=== PATIENT | male | born 1950 | race Hispanic/Latino ===

== ENCOUNTER 2018-04-15 08:16 | Observation (INO) | payer MEDICARE ==
[~2018-04-15] VITALS: Ht 175.3 cm; Wt 98.0 kg
[2018-04-15] MEDS ORDERED: NITROGLYCERIN 2% OINT 1 GM PKT TOP ONE (08:30)
[2018-04-15] MEDS ORDERED: ASPIRIN 81 MG CHEW TAB PO ONE (08:30)
--- NOTE | 2018-04-15 08:49 | NUR ---
Gonzalez, sanchez, Carol Farley #[id number] used in patient triage
--- NOTE | 2018-04-15 09:15 | NUR ---
PATIENT AWAKE AND ALERT SITTING IN BED. RESP EVEN AND UNLABORED. SKIN WARM AND DRY. NO SIGNS OF ACUTE DISTRESS NOTED AT THIS TIME. REPORTS CHEST PAIN HAS IMPROVED AFTER NITRO NOW 08/15, WAS 8/10. DENIES ANY OTHER C/O AT THIS TIME.
[2018-04-15 09:33] LABS: BASOPHILS % 0.5 % (0.0-1.0); EOSINOPHILS # (AUTO) 0.2 (0.0-0.4); EOSINOPHILS % 2.8 % (0.0-6.0); HEMATOCRIT 47.2 % (38.2-49.6); HEMOGLOBIN 15.8 g/dL (14.0-18.0); LYMPHOCYTES # (AUTO) 1.9 (1.0-3.2); LYMPHOCYTES % 30.8 % (18.0-39.1); MEAN CORPUSCULAR HEMOGLOBIN 29.5 pg (28-32); MEAN CORPUSCULAR HGB CONC 33.5 g/dL (31-35); MEAN CORPUSCULAR VOLUME 88.2 fL (81-99); MONOCYTES # (AUTO) 0.3 (0.2-0.8); MONOCYTES % 4.5 % (4.4-11.3); NEUTROPHILS # (AUTO) 3.7 (2.1-6.9); NEUTROPHILS % 61.1 % (38.7-80.0); PLATELET COUNT 224 x10e3/uL (140-360); RED BLOOD COUNT 5.35 x10e6/uL (4.3-5.7); RED CELL DISTRIBUTION WIDTH 12.6 % (11.7-14.4)
[2018-04-15 09:39] LABS: INR 0.89; PROTHROMBIN TIME 12.9 seconds (11.9-14.5)
[2018-04-15 09:41] LABS: PARTIAL THROMBOPLASTIN TIME 47.9 seconds (23.8-35.5)
[2018-04-15 09:45] LABS: BILIRUBIN,URINE NEGATIVE (NEGATIVE); CLARITY,URINE SL CLOUDY (CLEAR); COLOR,URINE YELLOW (YELLOW); KETONES,URINE NEGATIVE (NEGATIVE); LEUKOCYTE ESTERASE ,URINE NEGATIVE (NEGATIVE); NITRITE,URINE NEGATIVE (NEGATIVE); PROTEIN,URINE DIPSTICK 1+ (NEGATIVE); URINE UROBILINOGEN 0.2 mg/dL (0.2 - 1)
[2018-04-15 09:46] LABS: ALANINE AMINOTRANSFERASE 14 IU/L (0-55); ALBUMIN 3.6 g/dL (3.5-5.0); ALBUMIN/GLOBULIN RATIO 0.9 (0.8-2.0); ALKALINE PHOSPHATASE 114 IU/L (40-150); ANION GAP 13.3 mmol/L (8-16); BLOOD UREA NITROGEN 12 mg/dL (7-26); BUN/CREATININE RATIO 10 (6-25); CALCIUM 9.4 mg/dL (8.4-10.2); CARBON DIOXIDE 27 mmol/L (22-29); CHLORIDE 100 mmol/L (98-107); CREATINE KINASE 76 IU/L (30-200); CREATININE, SERUM 1.16 mg/dL (0.72-1.25); EST GLOMERULAR FILTRATION RATE > 60 ML/MIN (60-); GLUCOSE 197 mg/dL (74-118); LIPASE 16 U/L (8-78); POTASSIUM 4.3 mmol/L (3.5-5.1); SODIUM 136 mmol/L (136-145)
[2018-04-15 09:55] LABS: EPITHELIAL CELLS,URINE RARE /LPF
--- NOTE | 2018-04-15 10:12 | Diagnostic Imaging Report ---
EXAMINATION: CHEST SINGLE (PORTABLE) INDICATION: Left sided chest pain. COMPARISON: None FINDINGS: TUBES and LINES: None. LUNGS: Lungs are well inflated. Lungs are clear. There is no evidence of pneumonia or pulmonary edema. PLEURA: No pleural effusion or pneumothorax. HEART AND MEDIASTINUM: The cardiomediastinal silhouette is unremarkable. Tortuous and ectatic thoracic aorta. BONES AND SOFT TISSUES: No acute osseous lesion. Soft tissues are unremarkable. UPPER ABDOMEN: No free air under the diaphragm. IMPRESSION: No acute radiographic abnormality. Signed by: Dr. Arnie Ramirez MD on 04/15/2018 10:08 AM
[2018-04-15] MEDS ORDERED: LISINOPRIL 2.5 MG TAB PO ONE (10:15)
[2018-04-15] MEDS ORDERED: ONDANSETRON HCL INJ 2MG/ML 2ML 2 MG/ML VIAL IV PRN (10:45)
[2018-04-15] MEDS: FAMOTIDINE 20 MG/2 ML VIAL IV SCH ×2 (11:00→21:00)
--- NOTE | 2018-04-15 11:05 | NUR ---
VERBAL REPORT GIVEN TO NICOLE TROTTER.
--- NOTE | 2018-04-15 11:35 | NUR ---
rec'd pt in walking rounds with judith wilson for continuity of care. geoff.s.s
[2018-04-15] MEDS: NITROGLYCERIN 2% OINT 1 GM PKT TOP SCH ×3 (12:00→23:55)
--- OUTSIDE RECORDS SUMMARY | 2018-04-15 13:03 | XMS REPORT ---
[facility] Address Unknown Phone Unavailable Care Team Providers Care Rn Iv Therapy Name Role Phone Errol FALLON Unavailable Unavailable Problems This patient has no known problems. Allergies, Adverse Reactions, Alerts This patient has no known allergies or adverse reactions. Medications This patient has no known medications. Results Test Description Test Time Test Comments Text Results Atomic Results Result Comments CHEST SINGLE (PORTABLE) 2018-04-15 10:05:00 [place] [address] Patient Name: LAURA NOVA MR #: [id number] : 1950 Age/Sex: 68/M Req #: [id number] Adm Physician: Ordered by: FADUMO FALLON MD Report #: [id number] Location: ER Room/Bed: Procedure: [id number] DX/CHEST SINGLE (PORTABLE) Exam Date: 04/15/18 Exam Time: 0905 REPORT STATUS: Signed EXAMINATION: CHEST SINGLE (PORTABLE) INDICATION: Left sided chest pain. COMPARISON: None FINDINGS: TUBES and LINES: None. LUNGS: Lungs are well inflated. Lungs are clear. There is no evidence of pneumonia or pulmonary edema. PLEURA: No pleural effusion or pneumothorax. HEART AND MEDIASTINUM: The cardiomediastinal silhouette is unremarkable. Tortuous and ectatic thoracic aorta. BONES AND SOFT TISSUES: No acute osseous lesion. Soft tissues are unremarkable. UPPER ABDOMEN: No free air under the diaphragm. IMPRESSION: No acute radiographic abnormality. Signed by: Dr. Mario De Los Santos MD on 04/15/2018 10:08 AM Dictated By: MARIO DE LOS SANTOS MD [id number] Transcribed By: CHEMA on 04/15/18 1008 COPY TO: FADUMO FALLON MD
--- NOTE | 2018-04-15 13:52 | NUR ---
Patient admitted to unit from ER. Patient arrived via wheelchair. Patient is AAOx3. Ambulates on his own. Patient c/o chest pain for 8 days that radiated down his left arm. No c/o chest pain at this time. Patient states "It gets tighter when I ambulate at times." Lung ferris clear to auscultation. Bowel sounds present x4. No edema noted. No shortness of breath noted.
[2018-04-15 14:15] VITALS: BP 165/79
[2018-04-15 14:23] VITALS: BP 165/79
[2018-04-15 16:10] VITALS: BP 150/80
[2018-04-15 16:34] LABS: CREATINE KINASE MB 1.9 ng/mL (0-5.0)
--- NOTE | 2018-04-15 19:10 | NUR ---
REPORT RECEIVED FROM OFF GOING NURSE, PT RESTING IN BED ALERT AND ORIENTED, NO DISTRESS NOTED, TELEMETRY NOTED, DENIES CHEST PAIN, DENIES NEEDS, CALL LIGHT IN REACH, INSTRUCTED TO CALL WITH NEEDS
[2018-04-15 20:00] VITALS: BP 149/76
[2018-04-16] VITALS (8 sets, daily range): BP systolic 127–206; BP diastolic 58–95
[2018-04-16 04:10] LABS: CREATINE KINASE MB 1.8 ng/mL (0-5.0)
--- NOTE | 2018-04-16 05:21 | NUR ---
PT RESTING IN BED WITH EYES CLOSED, OPENS EYES UPON APPROACH, DENIES NEEDS, DENIES CHEST PAIN, CLINICAL RESOURCE MANAGER NOTED, BED LOCKED AND LOW, CALL LIGHT IN REACH, INSTRUCTED TO CALL WITH NEEDS
[2018-04-16 05:52] LABS: BASOPHILS % 0.4 % (0.0-1.0); EOSINOPHILS # (AUTO) 0.2 (0.0-0.4); EOSINOPHILS % 2.8 % (0.0-6.0); HEMOGLOBIN 13.7 g/dL (14.0-18.0); LYMPHOCYTES # (AUTO) 2.2 (1.0-3.2); LYMPHOCYTES % 29.6 % (18.0-39.1); MEAN CORPUSCULAR HEMOGLOBIN 29.8 pg (28-32); MEAN CORPUSCULAR HGB CONC 34.3 g/dL (31-35); MEAN CORPUSCULAR VOLUME 87.1 fL (81-99); MONOCYTES # (AUTO) 0.4 (0.2-0.8); MONOCYTES % 5.8 % (4.4-11.3); NEUTROPHILS # (AUTO) 4.4 (2.1-6.9); PLATELET COUNT 179 x10e3/uL (140-360); RED BLOOD COUNT 4.59 x10e6/uL (4.3-5.7); RED CELL DISTRIBUTION WIDTH 12.6 % (11.7-14.4)
[2018-04-16] MEDS: NITROGLYCERIN 2% OINT 1 GM PKT TOP SCH ×2 (06:00→13:00)
[2018-04-16 06:13] LABS: ALANINE AMINOTRANSFERASE 11 IU/L (0-55); ALBUMIN/GLOBULIN RATIO 0.9 (0.8-2.0); ALKALINE PHOSPHATASE 92 IU/L (40-150); ANION GAP 12.9 mmol/L (8-16); BLOOD UREA NITROGEN 14 mg/dL (7-26); BUN/CREATININE RATIO 13 (6-25); CALCIUM 8.7 mg/dL (8.4-10.2); CARBON DIOXIDE 24 mmol/L (22-29); CHLORIDE 104 mmol/L (98-107); CHOL/HDL RATIO 5.4 (3.9-4.7); CHOLESTEROL 194 MD/DL (0-199); CREATININE, SERUM 1.09 mg/dL (0.72-1.25); EST GLOMERULAR FILTRATION RATE > 60 ML/MIN (60-); GLUCOSE 157 mg/dL (74-118); HDL CHOLESTEROL 36 MG/DL (40-60); LDL CHOLESTEROL 115 MG/DL (60-130); POTASSIUM 3.9 mmol/L (3.5-5.1); SODIUM 137 mmol/L (136-145); TRIGLYCERIDES 215 MG/DL (0-149)
[2018-04-16] MEDS: LISINOPRIL 2.5 MG TAB PO SCH (09:45)
[2018-04-16] MEDS: FAMOTIDINE 20 MG/2 ML VIAL IV SCH ×2 (09:45→21:00)
[2018-04-16] MEDS: ASPIRIN 81 MG ENTERIC COATED PO SCH (09:45)
--- NOTE | 2018-04-16 11:03 | NUR ---
CASE MANAGEMENT INITIAL ASSESSMENT Treasury Representative to bedside to discuss plan of care with patient/family. CM/SW role and care transitions discussed. Anticipated discharge plan discussed along with duration of care. CM/SW discussed patients right to make decisions in care. CM/SW work hours given. Patient lives: alone Admit/Transfer: thru ED Hospital/ER visits since last admit: never been hospitalized POA/Emergency contact: daughter Augusta Hernández [phone], son Prince Hernández [phone] Current/Previous Home Health: none PCP/Follow-up Care: Dr. Palomo - pt informed to follow with MD within 7 days of discharge Current/Previous DME: none Medications (referring to index hospitalization or the first time you were in the hospital) a. Were changes made in your medications when you were in the hospital on [date of index hospitalization]? n/a b. Did you understand the changes? n/a c. Were you able to obtain your new medications right away? n/a d. Were you able to take your medications like the doctor wanted you to? n/a e. Did the hospital give you an accurate, easy to understand list of medications when you left? n/a Scale of 1-10 how comfortable does patient feel with disease management in outpatient setting: Other Services: none Employment Status: works for [employer] Areas of Concerns: none Referral Needs: none Education Needs: none IMM/MICHELE given and signed (if applicable): MICHELE; signed copy in chart. copy to pt Goal for discharge: home CM/SW left business card at the bedside with contact information. Name and number was also written on the patients whiteboard. Patient verbalized understanding of discussion. CM will follow-up with ongoing discharge and transition of care needs.
--- NOTE | 2018-04-16 12:45 | NUR ---
Nutrition Screen Note RD Recommendation for Physician: Continue diet as ordered Plan of Care: RD following, monitoring for adequacy and tolerance Nutrition reason for involvement: Nutrition Risk Trigger - MST Primary Diagnose(s): Chest pain hypertensive urgency Ht:69 in Wt:219lbs BMI:32.3 kg/m2 IBW:69lbs RD Assessment:(04/16/2018) Initial encounter with patient. Pt is eating well, Denies any difficulty chewing or swallowing nor has any N,V,D. Lab results reviewed, MAR reviewed. Pt speaks mostly Malagasy. Current Diet: Cardiac diet Malnutrition Evaluation (04/16/2018) The patient does not meet criteria for a specified degree of malnutrition at this time. Will re-evaluate at follow-up as appropriate. Diet Education Needs Assessment: Diet education not indicated. Diet Adequacy: Meeting calorie needs, Meeting protein needs, Meeting fluid needs Tolerance: Tolerating PO Nutrition Care Level:Mark Anthony Fu RD, LD, CNSC
--- NOTE | 2018-04-16 14:11 | NUR ---
CALL PLACED TO DR. TELLEZ REGARDING BLOOD PRESSURE. ORDERS REC'D.
[2018-04-16] MEDS ORDERED: LABETALOL HCL 100 MG TAB PO NR (14:15)
[2018-04-16] MEDS ORDERED: LABETALOL HCL 20 MG/4 ML SYRINGE IV NR (14:15)
[2018-04-16] MEDS ORDERED: HYDRALAZINE HCL 25 MG TAB PO NR (14:15)
[2018-04-16] MEDS ORDERED: SPIRONOLACTONE 25 MG TAB PO SCH (15:15)
--- NOTE | 2018-04-16 15:32 | NUR ---
REASSESSED BLOOD PRESSURE; CALLED AND MADE DR TELLEZ AWARE.
[2018-04-16] MEDS ORDERED: ALPRAZOLAM 0.25 MG TAB PO PRN (15:45)
--- NOTE | 2018-04-16 19:10 | NUR ---
REPORT RECEIVED FROM OFF GOING NURSE, PT RESTING IN CHAIR AT BEDSIDE, DENIES NEEDS, ALERT AND ORIENTED, NO DISTRESS NOTED, CALL LIGHT IN REACH, INSTRUCTED TO CALL WITH NEEDS
[2018-04-16] MEDS: LABETALOL HCL 100 MG TAB PO SCH (21:00)
[2018-04-16] MEDS: HYDRALAZINE HCL 25 MG TAB PO SCH (21:12)
[2018-04-16] MEDS ORDERED: HYDRALAZINE HCL 25 MG TAB PO SCH ×2 (22:00)
--- NOTE | 2018-04-16 23:25 | NUR ---
History and PHysical PCP cc: left chest pain HPI: 68yoM, with hx HTN developed left sided chest pain, found to have markedly elevated BP. Admitted for mgmt; No sob/TELLEZ/dizziness PMH: HTn PSHx: none Allergies; see emr Fh/SH; ; no etoh/cigs/illicits Meds; see MAR ROS: no f/c/s/N/V/D/TELLEZ/dizziness/sob/skin rash v/s; rev'd PE: tired appearing anicteric ns1s2 mod bs soft nt nd no e/t a&o3; [place] skin dry n. affect labs/meds; rev;d A/P:68yoM HTN-Emergency DM2 Obesity BMI 32.3 Bradyarrhythmia HLD PLAN 1.remove patch; use BB/hydralazine/aceI 2.lipid panel 3.screen for Dm 4.pepcid/scd f/u lab; titrate antiHTN meds Rudolph Reddy MD, PhD.
[2018-04-17 00:06] VITALS: BP 142/81
[2018-04-17 04:00] VITALS: BP 130/68
--- NOTE | 2018-04-17 05:34 | NUR ---
PT AMBULATING FROM RESTROOM TO BED, NO DISTRESS NOTED, DENIES PAIN, DENIES NEEDS, BANKRUPTCY LAW SPECIALIST NOTED, CALL LIGHT IN REACH, INSTRUCTED TO CALL WITH NEEDS
[2018-04-17] MEDS: HYDRALAZINE HCL 25 MG TAB PO SCH (06:00)
[2018-04-17 08:23] VITALS: BP 168/79
[2018-04-17 08:37] LABS: ALBUMIN 3.3 g/dL (3.5-5.0); ALBUMIN/GLOBULIN RATIO 0.9 (0.8-2.0); ANION GAP 12.7 mmol/L (8-16); CREATININE, SERUM 1.21 mg/dL (0.72-1.25); POTASSIUM 3.7 mmol/L (3.5-5.1)
[2018-04-17 08:43] VITALS: BP 168/79
[2018-04-17] MEDS: LABETALOL HCL 100 MG TAB PO SCH (09:11)
[2018-04-17] MEDS: LISINOPRIL 2.5 MG TAB PO SCH (09:11)
[2018-04-17] MEDS: ASPIRIN 81 MG ENTERIC COATED PO SCH (09:11)
[2018-04-17] MEDS: FAMOTIDINE 20 MG/2 ML VIAL IV SCH (09:11)
--- NOTE | 2018-04-17 09:29 | NUR ---
CM SPOKE TO DR. TELLEZ REGARDING PATIENT PLAN OF CARE. BP MEDICATIONS ADJUSTED. PER MD PATIENT WILL BE DISCHARGED WHEN HE ROUNDS IF BP IS STABLE. CM TO FOLLOW UP.
[2018-04-17] MEDS ORDERED: HYDRALAZINE HCL 25 MG TAB PO NR (11:00)
[2018-04-17] MEDS ORDERED: LISINOPRIL2.5 MG PO (11:02)
[2018-04-17] MEDS ORDERED: METFORMIN HCL500 MG PO (11:02)
[2018-04-17] MEDS ORDERED: ASPIRIN EC81 MG PO (11:02)
[2018-04-17] MEDS ORDERED: HYDRALAZINE HCL25 MG PO (11:02)
[2018-04-17] MEDS ORDERED: ALPRAZOLAM0.25 MG PO (11:02)
[2018-04-17] MEDS ORDERED: LABETALOL HCL100 MG PO (11:02)
[2018-04-17] MEDS ORDERED: ATORVASTATIN CA20 MG PO (11:05)
--- NOTE | 2018-04-17 11:07 | NUR ---
Discharge Summary Principal Dx: A/P:68yoM HTN-Emergency Uncontrolled DM2 Hba1 11 Obesity BMI 32.3 Bradyarrhythmia HLD PLAN 1.remove patch; use BB/hydralazine/aceI 2.lipid panel 3.screen for Dm 4.pepcid/scd f/u lab; titrate antiHTN meds start atorvasatin; use labetalol, hydralazine, lisinopril. Needs ADA diet and close f/u outpt. d/c >35mins d/c home f/u pcp 1 week condition stable Rudolph Reddy MD, PhD.
[2018-04-17] MEDS: METFORMIN HCL 500 MG TAB PO SCH ×2 (12:00→16:45)
--- NOTE | 2018-04-17 12:02 | NUR ---
NEWLY DIAGNOSED DIABETES TEACHING PROVIDED BY WEED ERADICATOR. PT AWAITING TO SEE THE ATTENDING PHYSICIAN BEFORE DISCHARGE.
[2018-04-17 12:28] VITALS: BP 159/75
[2018-04-17] MEDS ORDERED: HYDRALAZINE HCL 25 MG TAB PO SCH (14:00)
[2018-04-17 17:31] VITALS: BP 159/72
--- NOTE | 2018-04-17 19:01 | NUR ---
HANDOFF REPORT GIVEN TO ONCOMING ROOFING SUPERVISOR NURSE.
== END 2018-04-17 19:14 | disposition home or self-care (01) ==
LOC: ER 08:16 → ERHOLD 12:10 → MED/SURG 14:09
PROVIDERS: ADMIT Internal Medicine; ATTEND Internal Medicine
DX: I16.1 Hypertensive emergency (principal); R07.9 Chest pain, unspecified; I10 Essential (primary) hypertension; Z82.49 Family history of ischemic heart disease and other diseases of the circulatory system; E11.9 Type 2 diabetes mellitus without complications; E66.9 Obesity, unspecified; Z68.32 Body mass index [BMI] 32.0-32.9, adult; I49.8 Other specified cardiac arrhythmias; E78.5 Hyperlipidemia, unspecified
CPT/HCPCS: 36415 ×2; 71045; 80053 ×3; 80061; 81001; 82088; 82550 ×2; 82553 ×2; 82948 ×3; 83036; 83690; 83735; 83880; 84244; 84443; 84484 ×2; 85025 ×2; 85610; 85730; 87086; 93005; 99284; G0378 ×3